=== PATIENT | female | born 1945 | race Caucasian/White ===

== ENCOUNTER 2018-02-25 09:42 | Day surgery (SDC) ==
[2018-02-25] MEDS: BETADINE OPTH PREP OP PRN ×2 (11:24→11:40)
[2018-02-25] MEDS: TETRACAINE 0.5% UNIT-DOSE OP PRN ×2 (11:24→11:40)
[2018-02-25] MEDS: CYCLOGYL 2% OPTH OP PRN ×3 (11:25→11:35)
[2018-02-25] MEDS ORDERED: LIDOCAINE 1%/PHENYLEPHRINE 1.5% BSS (SURGERY) INTRAOCULA ONE (11:32)
[2018-02-25] MEDS ORDERED: LIDOCAINE 1% 20 ML MDV ID STA (11:32)
[2018-02-25] MEDS ORDERED: DEX-MOXI-KETOR OPTH INJ 1/0.5/0.4 MG/ML IO ONE (11:32)
[2018-02-25] MEDS ORDERED: ZOFRAN 4 MG/2 ML IVP ONE (11:32)
[2018-02-25] MEDS ORDERED: BRIMONIDINE TARTRATE 0.2% OPTH SOL OP PRN (11:32)
[2018-02-25] MEDS ORDERED: BSS WITH EPINEPHRINE OP ONE (11:32)
[2018-02-25 11:42] VITALS: TEMP 98.7
[2018-02-25] MEDS ORDERED: ZOFRAN 4 MG/2 ML ONE (12:05)
[2018-02-25] MEDS ORDERED: VERSED ONE (12:05)
[2018-02-25] MEDS ORDERED: SUBLIMAZE ONE (12:05)
[2018-02-27 10:46] VITALS: BP 121/56
== END 2018-02-25 13:10 | disposition home or self-care (01) ==
LOC: SURG 09:42
PROVIDERS: ATTEND Ophthalmology
DX: H25.11 Age-related nuclear cataract, right eye (principal)